=== PATIENT | female | born 1950 ===

== ENCOUNTER 2024-09-14 06:26 | Day surgery (SDC) | payer MEDICARE, OTHER, SELFPAY ==
[2024-09-14 10:04] VITALS: BMI 42.9
[2024-09-14 10:10] VITALS: BP 124/56
[2024-09-14 12:52] VITALS: BP 120/48
[2024-09-14 13:00] VITALS: BP 117/62
[2024-09-14 13:15] VITALS: BP 115/51
== END 2024-09-14 13:32 | disposition home or self-care (01) ==
LOC: SDS 06:26
PROVIDERS: ATTENDING PHYSICIAN Internal Medicine Gastroenterology
DX: K86.89 Other specified diseases of pancreas (principal); K86.2 Cyst of pancreas; K83.8 Other specified diseases of biliary tract; R93.5 Abnormal findings on diagnostic imaging of other abdominal regions, including retroperitoneum; Z79.01 Long term (current) use of anticoagulants
CPT/HCPCS: 43259